=== PATIENT | female | born 1955 ===

== ENCOUNTER 2020-01-15 05:39 | Inpatient (IN) ==
[2020-01-15] MEDS ORDERED: Lactated Ringers 1000 ml BAG 1,000 ML IV SCH (06:00)
[2020-01-15] MEDS ORDERED: Buffered Lidocaine 1% SYRIN 1 ml INTRADERM ONE (06:00)
[2020-01-15] MEDS ORDERED: ceFAZolin 2 GM PREMIX 2 GM/50 ML BAG ONE (06:18)
[2020-01-15] MEDS ORDERED: Lidocaine 2% PF 5 ML VIAL ONE ×2 (06:58→07:06)
[2020-01-15] MEDS ORDERED: Dexmedetomidine 200 mcg/2 ml 2 ml VIAL (200 mcg) ONE (06:58)
[2020-01-15] MEDS ORDERED: Midazolam 2 mg/2 ml VIAL 1 mg/ml 2 ml VIAL (2 mg) ONE ×2 (06:58→07:33)
[2020-01-15] MEDS ORDERED: Dexamethasone IV 4 MG/ML VIAL 1 ml VIAL ONE (06:58)
[2020-01-15] MEDS ORDERED: ROPIVACAINE 5 MG/ML 30 ML BTL (0.5%) ONE (06:58)
[2020-01-15] MEDS ORDERED: Propofol 10 mg/ml 100 ML BTL 100 ML ONE (06:58)
[2020-01-15] MEDS ORDERED: Ondansetron 4 mg VIAL 2 MG/ML 2 ml VIAL ONE (07:06)
[2020-01-15] MEDS ORDERED: Bupivacaine 0.5% 50 ML MDV VIAL ONE (07:09)
[2020-01-15] MEDS ORDERED: fentaNYL 250 mcg/5 ml 50 MCG/ML 5 ml VIAL (250 MCG) ONE (07:40)
[2020-01-15] MEDS ORDERED: Acetaminophen IV 1 GM/100ML 100 ML ONE (08:23)
[2020-01-15] MEDS ORDERED: Propofol 10 MG/ML 20 ML BTL ONE (08:24)
[2020-01-15] MEDS ORDERED: Naloxone 0.4 mg VIAL 0.4 mg/ml 1 ml VIAL IV PRN (08:31)
[2020-01-15] MEDS ORDERED: DiMENhydriNATE IV 50 mg/ml 1 ml VIAL IV PUSH PRN (08:31)
[2020-01-15] MEDS ORDERED: diPHENhydraMINE IV 50 MG/ML 1 ml VIAL (BENADRYL) IV PRN (10:22)
[2020-01-15] MEDS ORDERED: diPHENhydraMINE 25 mg TAB PO PRN (10:22)
[2020-01-15] MEDS ORDERED: Magnesium Hydroxide LIQ 30 ML UDC PO PRN (10:22)
[2020-01-15] MEDS ORDERED: Ondansetron 4 mg VIAL 2 MG/ML 2 ml VIAL IV PRN (10:22)
[2020-01-15] MEDS ORDERED: Lactulose 30 ml UDC PO PRN (10:22)
[2020-01-15] MEDS ORDERED: Ondansetron ODT 4 mg TAB 4 MG TAB PO PRN (10:22)
[2020-01-15] MEDS ORDERED: fentaNYL 100 mcg/2 ml 50 MCG/ML VIAL ONE (10:30)
[2020-01-15] MEDS: fentaNYL 100 mcg/2 ml 50 MCG/ML VIAL IV PRN ×3 (10:38→11:07)
[2020-01-15] MEDS: Lactated Ringers 1000 ml BAG 1,000 ML IV SCH (12:09)
[2020-01-15] MEDS: ceFAZolin 1 GM ADVAN 1 GM in NS 0.9% 50 ML 50 ML IVPB SCH (16:24)
[2020-01-15] MEDS: Magnesium Hydroxide LIQ 30 ML UDC PO SCH (20:44)
[2020-01-16] MEDS: ceFAZolin 1 GM ADVAN 1 GM in NS 0.9% 50 ML 50 ML IVPB SCH ×2 (00:07→08:10)
[2020-01-16] MEDS: Lactated Ringers 1000 ml BAG 1,000 ML IV SCH (02:18)
[2020-01-16] MEDS: Vitamin THERAPEUTIC TAB PO SCH (08:07)
[2020-01-16] MEDS: Magnesium Hydroxide LIQ 30 ML UDC PO SCH ×2 (08:07→21:41)
[2020-01-16 08:30] LABS: Hematocrit 33 % (35-47); Mean Platelet Volume 7.7 fL (7.4-10.4); Platelet Count 211 10^3/uL (150-450)
[2020-01-16 08:34] LABS: BUN/Creatinine Ratio 27.4 (8-20); Calcium 8.2 mg/dL (8.6-10.3); EGFR African American 116.5 (>60); EGFR Non-African American 96.3 (>60); Potassium 4.5 mmol/L (3.5-5.0)
[2020-01-16] MEDS: Enoxaparin 40 MG/0.4 ML SYR SUBCUT SCH (12:08)
[2020-01-16] MEDS: Morphine 2 MG/ML SYRINGE IV PRN (23:18)
[2020-01-17 06:11] LABS: Hematocrit 30 % (35-47); Hemoglobin 10.4 g/dL (12.0-16.0); Mean Platelet Volume 7.7 fL (7.4-10.4); Platelet Count 187 10^3/uL (150-450)
[2020-01-17] MEDS: Vitamin THERAPEUTIC TAB PO SCH (08:36)
[2020-01-17] MEDS: Magnesium Hydroxide LIQ 30 ML UDC PO SCH ×2 (08:36→21:59)
[2020-01-17] MEDS: Enoxaparin 40 MG/0.4 ML SYR SUBCUT SCH (11:06)
[2020-01-17] MEDS: Morphine 2 MG/ML SYRINGE IV PRN (21:58)
[2020-01-18 07:13] LABS: Hematocrit 33 % (35-47); Hemoglobin 11.2 g/dL (12.0-16.0); Mean Platelet Volume 8.2 fL (7.4-10.4); Platelet Count 188 10^3/uL (150-450)
[2020-01-18] MEDS ORDERED: Scopolamine PATCH Remove NOTE PATCH OFF ONE (08:32)
[2020-01-18] MEDS: Vitamin THERAPEUTIC TAB PO SCH (09:04)
[2020-01-18] MEDS: Magnesium Hydroxide LIQ 30 ML UDC PO SCH ×2 (09:06→20:10)
[2020-01-18] MEDS: Enoxaparin 40 MG/0.4 ML SYR SUBCUT SCH (12:03)
[2020-01-19 05:34] LABS: Hematocrit 33 % (35-47); Hemoglobin 10.8 g/dL (12.0-16.0); Platelet Count 220 10^3/uL (150-450)
[2020-01-19] MEDS: Magnesium Hydroxide LIQ 30 ML UDC PO SCH ×2 (07:48→21:18)
[2020-01-19] MEDS: Vitamin THERAPEUTIC TAB PO SCH (09:11)
[2020-01-19] MEDS: Enoxaparin 40 MG/0.4 ML SYR SUBCUT SCH (12:22)
[2020-01-20 05:43] LABS: Hematocrit 38 % (35-47); Hemoglobin 12.5 g/dL (12.0-16.0); Mean Platelet Volume 7.4 fL (7.4-10.4); Platelet Count 277 10^3/uL (150-450)
[2020-01-20] MEDS: Magnesium Hydroxide LIQ 30 ML UDC PO SCH ×2 (08:22→21:07)
[2020-01-20] MEDS: Vitamin THERAPEUTIC TAB PO SCH (08:23)
[2020-01-20] MEDS: Enoxaparin 40 MG/0.4 ML SYR SUBCUT SCH (12:36)
[2020-01-21] MEDS: Magnesium Hydroxide LIQ 30 ML UDC PO SCH (09:48)
[2020-01-21] MEDS: Vitamin THERAPEUTIC TAB PO SCH (09:49)
[2020-01-21] MEDS: Enoxaparin 40 MG/0.4 ML SYR SUBCUT SCH (11:17)
[2020-01-21 12:00] VITALS: BP 126/71
== END 2020-01-21 12:25 | DRG 505 ==
LOC: AA 05:39 → EDSTATUS 07:30 → SSU 11:41
PROVIDERS: ADMIT Orthopaedic Surgery; ATTEND Orthopaedic Surgery